=== PATIENT | male | born 1930 | race Caucasian/White ===

== ENCOUNTER 2021-02-04 18:50 | Inpatient (IN) | payer MEDICARE, OTHER ==
[2021-02-04 19:37] LABS: #Eosinphils 0.2 thou/uL (0.0-0.7); #Lymphocytes 1.6 thou/uL (1.20-3.40); #Monocytes 0.9 thou/uL (0.11-0.59); #Neutrophils 5.3 thou/uL (1.40-6.50); %Basophils 0.5 % (0.0-1.0); %Lymphocytes 20.1 % (21.0-51.0); %Monocytes 10.8 % (0.0-10.0); %Neutrophils 65.7 % (42.0-75.0); Hemoglobin 11.1 g/dL (14.0-18.0); Mean Corpuscular HGB CONC 31.4 g/dL (32.0-36.0); Mean Corpuscular Hemoglobin 29.8 pg (27.0-31.0); Mean Corpuscular Volume 94.9 fL (78.0-98.0); Mean Platelet Volume 6.7 fL (7.4-10.4); Platelet Count 259 thou/uL (130-400); RBC Distribution Width 12.8 % (11.5-14.5); White Blood Cell (WBC) Count 8.1 thou/uL (4.8-10.8)
[2021-02-04 19:57] LABS: ALT (SGPT) Less than 7 U/L (8-55); AST (SGOT) 15 U/L (5-34); Albumin 3.3 g/dL (3.4-4.8); Alkaline Phosphatase 71 U/L (40-110); Anion Gap 14 mmol/L (10-20); BUN (Urea Nitrogen) 24 mg/dL (8.4-25.7); Bilirubin, Total 0.3 mg/dL (0.2-1.2); Calc. Creatinine Clearance 0 mL/min (70-130); Calcium 8.5 mg/dL (7.8-10.44); Carbon Dioxide 21 mmol/L (23-31); Chloride 107 mmol/L (98-107); Glucose 134 mg/dL (83-110); Potassium 3.6 mmol/L (3.5-5.1); Protein, Total 6.3 g/dL (5.8-8.1); Sodium 138 mmol/L (136-145)
[2021-02-04 20:20] LABS: CKMB 4.8 ng/mL (0-6.6)
[2021-02-04] MEDS ORDERED: Enoxaparin Sodium 80 MG/0.8 ML SYRINGE ONE (21:00)
[2021-02-04 22:51] VITALS: BMI 25.9
[2021-02-04 23:33] LABS: Troponin I 6.018 ng/mL (< 0.028)
[2021-02-05] MEDS: Melatonin 3 MG TAB PO PRN (01:48)
[2021-02-05 02:10] LABS: Troponin I 15.305 ng/mL (< 0.028)
[2021-02-05] MEDS ORDERED: Acetaminophen 325 MG TAB PO PRN (02:46)
[2021-02-05] MEDS ORDERED: Ondansetron PF 4 MG/2 ML Vial IVP PRN (02:46)
[2021-02-05] MEDS ORDERED: Nitroglycerin 0.4 MG TAB (25 Tab Bottle) SL PRN (02:46)
[2021-02-05] MEDS ORDERED: Sodium Chloride 0.9% 1,000 ML IV SCH (03:00)
[2021-02-05 04:57] LABS: #Basophils 0.1 thou/uL (0.0-0.2); #Eosinphils 0.2 thou/uL (0.0-0.7); #Lymphocytes 1.7 thou/uL (1.20-3.40); #Monocytes 1.1 thou/uL (0.11-0.59); #Neutrophils 5.8 thou/uL (1.40-6.50); %Basophils 0.6 % (0.0-1.0); %Eosinophils 2.6 % (0.0-10.0); %Lymphocytes 19.5 % (21.0-51.0); %Monocytes 11.9 % (0.0-10.0); %Neutrophils 65.4 % (42.0-75.0); Hemoglobin 10.6 g/dL (14.0-18.0); Mean Corpuscular HGB CONC 32.7 g/dL (32.0-36.0); Mean Corpuscular Hemoglobin 31.1 pg (27.0-31.0); Mean Corpuscular Volume 95.2 fL (78.0-98.0); Platelet Count 226 thou/uL (130-400); RBC Distribution Width 12.7 % (11.5-14.5); Red Blood Cell (RBC) Count 3.42 mill/uL (4.70-6.10); White Blood Cell (WBC) Count 8.9 thou/uL (4.8-10.8)
[2021-02-05 05:07] LABS: INR-International Normal Ratio 1.3; PTT 53.1 sec (22.9-36.1)
[2021-02-05 05:21] LABS: Anion Gap 13 mmol/L (10-20); BUN (Urea Nitrogen) 21 mg/dL (8.4-25.7); Calc. Creatinine Clearance 41 mL/min (70-130); Calcium 8.4 mg/dL (7.8-10.44); Carbon Dioxide 19 mmol/L (23-31); Cardiac Risk 5.1 (Less than 4.5); Chloride 110 mmol/L (98-107); Cholesterol 132 mg/dl (< 200 Desired); Glucose 105 mg/dL (83-110); HDL Cholesterol 26 mg/dL (>60 Neg Risk); LDL Cholesterol, Calculated 76 mg/dL; Magnesium 1.3 mg/dL (1.6-2.6); Potassium 3.7 mmol/L (3.5-5.1); Sodium 138 mmol/L (136-145); Triglycerides 149 mg/dL (Less than 150)
[2021-02-05 06:57] LABS: CKMB 24.5 ng/mL (0-6.6)
[2021-02-05] MEDS ORDERED: Magnesium 2 GM/50 ML 2 GM in Premix Bag 1 BAG IVPB SCH (07:30)
[2021-02-05] MEDS: Aspirin Chewable 81 MG TAB PO SCH (08:54)
[2021-02-05] MEDS: Magnesium Oxide 400 MG TAB PO SCH ×2 (08:54→22:20)
[2021-02-05] MEDS: Sotalol HCl 80 MG TAB PO SCH ×2 (08:55→22:20)
[2021-02-05] MEDS ORDERED: HYDROcodone/Acetaminophen 5/325 mg Tablet PO PRN (12:39)
[2021-02-05 13:15] LABS: CRP (Inflammatory) 4.01 mg/dL (= or < 0.5); Uric Acid 8.8 mg/dL (3.5-7.2)
[2021-02-05] MEDS: predniSONE 20 MG TAB PO SCH (13:53)
[2021-02-05 16:43] LABS: SARS-CoV-2 PCR by NAA Not Detected (NotDetected)
[2021-02-05] MEDS ORDERED: Enoxaparin Sodium 60 MG/0.6 ML SYRINGE SC SCH (21:00)
[2021-02-05] MEDS ORDERED: Atorvastatin Calcium 20 MG TAB PO SCH (21:00)
[2021-02-05] MEDS: Enoxaparin Sodium 80 MG/0.8 ML SYRINGE SC SCH (22:19)
[2021-02-05] MEDS: Atorvastatin Calcium 40 MG TAB PO SCH (22:20)
[2021-02-05] MEDS: Nitroglycerin 2% Ointment 1 INCH/1 GM Packet TOP SCH (22:21)
[2021-02-06 05:12] LABS: #Lymphocytes 1.1 thou/uL (1.20-3.40); #Monocytes 0.8 thou/uL (0.11-0.59); #Neutrophils 6.6 thou/uL (1.40-6.50); %Eosinophils 0.3 % (0.0-10.0); %Lymphocytes 12.6 % (21.0-51.0); %Monocytes 8.8 % (0.0-10.0); %Neutrophils 78.3 % (42.0-75.0); Hemoglobin 10.1 g/dL (14.0-18.0); Mean Corpuscular HGB CONC 33.6 g/dL (32.0-36.0); Mean Corpuscular Hemoglobin 32.1 pg (27.0-31.0); Mean Corpuscular Volume 95.5 fL (78.0-98.0); Mean Platelet Volume 7.2 fL (7.4-10.4); Platelet Count 224 thou/uL (130-400); RBC Distribution Width 12.5 % (11.5-14.5); Red Blood Cell (RBC) Count 3.16 mill/uL (4.70-6.10); White Blood Cell (WBC) Count 8.5 thou/uL (4.8-10.8)
[2021-02-06 05:35] LABS: Anion Gap 13 mmol/L (10-20); BUN (Urea Nitrogen) 20 mg/dL (8.4-25.7); Calc. Creatinine Clearance 45 mL/min (70-130); Calcium 8.4 mg/dL (7.8-10.44); Carbon Dioxide 18 mmol/L (23-31); Chloride 110 mmol/L (98-107); Glucose 129 mg/dL (83-110); Magnesium 1.9 mg/dL (1.6-2.6); Sodium 137 mmol/L (136-145)
[2021-02-06] MEDS: Enoxaparin Sodium 80 MG/0.8 ML SYRINGE SC SCH (08:58)
[2021-02-06] MEDS: Aspirin Chewable 81 MG TAB PO SCH (08:58)
[2021-02-06] MEDS: Magnesium Oxide 400 MG TAB PO SCH ×2 (08:59→19:53)
[2021-02-06] MEDS: Sotalol HCl 80 MG TAB PO SCH ×2 (08:59→19:53)
[2021-02-06] MEDS: Nitroglycerin 2% Ointment 1 INCH/1 GM Packet TOP SCH ×2 (09:01→19:53)
[2021-02-06] MEDS: predniSONE 20 MG TAB PO SCH (11:45)
[2021-02-06] MEDS: Atorvastatin Calcium 40 MG TAB PO SCH (19:52)
[2021-02-06] MEDS: Melatonin 3 MG TAB PO PRN (19:52)
[2021-02-07] MEDS: Sotalol HCl 80 MG TAB PO SCH ×2 (04:57→20:39)
[2021-02-07] MEDS: Aspirin Chewable 81 MG TAB PO SCH (04:57)
[2021-02-07] MEDS: Nitroglycerin 2% Ointment 1 INCH/1 GM Packet TOP SCH ×2 (04:57→20:39)
[2021-02-07] MEDS: Magnesium Oxide 400 MG TAB PO SCH ×2 (04:57→20:38)
[2021-02-07 05:26] LABS: Anion Gap 13 mmol/L (10-20); BUN (Urea Nitrogen) 23 mg/dL (8.4-25.7); Calc. Creatinine Clearance 45 mL/min (70-130); Calcium 8.8 mg/dL (7.8-10.44); Carbon Dioxide 21 mmol/L (23-31); Chloride 109 mmol/L (98-107); Glucose 120 mg/dL (83-110); Magnesium 1.9 mg/dL (1.6-2.6); Potassium 4.1 mmol/L (3.5-5.1); Sodium 139 mmol/L (136-145)
[2021-02-07] MEDS ORDERED: Sodium Chloride 0.9% 1,000 ML IV SCH ×2 (06:00→08:45)
[2021-02-07] MEDS ORDERED: Heparin 10,000 UNITS/ 10 ML VIAL ONE (06:36)
[2021-02-07] MEDS ORDERED: Lidocaine 1% (PF) 30 ML VIAL ONE (06:36)
[2021-02-07] MEDS ORDERED: Fentanyl 100 MCG/2 ML VIAL ONE (08:05)
[2021-02-07] MEDS ORDERED: Midazolam HCl 2 mg/2 ml Vial ONE (08:05)
[2021-02-07] MEDS ORDERED: Protamine Sulfate 50 MG/5 ML VIAL ONE (08:28)
[2021-02-07] MEDS ORDERED: Sodium Chloride 0.9% 200 ML IV PRN (08:44)
[2021-02-07] MEDS ORDERED: Nitroglycerin 0.4 MG TAB (25 Tab Bottle) SL PRN (08:44)
[2021-02-07] MEDS ORDERED: Acetaminophen/Codeine 30-300mg Tablet PO PRN ×2 (08:44)
[2021-02-07] MEDS ORDERED: Lisinopril 10 MG TAB PO SCH (09:30)
[2021-02-07] MEDS ORDERED: Zolpidem Tartrate 5 MG TAB PO PRN (10:10)
[2021-02-07] MEDS ORDERED: HYDROcodone/Acetaminophen 10/325 mg Tablet PO PRN (10:10)
[2021-02-07] MEDS ORDERED: Communication Order-Pharmacy FS SCH (12:32)
[2021-02-07] MEDS: Atorvastatin Calcium 40 MG TAB PO SCH (20:38)
[2021-02-08] MEDS ORDERED: Metoprolol Tartrate 5 MG/5 ML VIAL IVP SCH (01:45)
[2021-02-08] MEDS: Sotalol HCl 80 MG TAB PO SCH (05:29)
[2021-02-08] MEDS ORDERED: Midazolam HCl 5 mg/5 ml Vial ONE (06:52)
[2021-02-08] MEDS ORDERED: Dexmedetomidine 200 MCG/2 ML VIAL ONE (06:52)
[2021-02-08] MEDS ORDERED: Fentanyl 250 MCG/5 ML VIAL ONE (06:52)
[2021-02-08] MEDS ORDERED: Lisinopril 10 MG TAB PO SCH (09:00)
[2021-02-08] MEDS ORDERED: Albumin 5% 500 ML ONE (09:32)
[2021-02-08] MEDS ORDERED: Heparin 10,000 UNITS/1 ML VIAL 30,000 UNITS in Sodium Chloride 0.9% 1,000 ML FS SCH (09:45)
[2021-02-08] MEDS ORDERED: Levofloxacin 500 mg/D5W 100 ml Premix Bag ONE (10:07)
[2021-02-08] MEDS ORDERED: Clindamycin/D5W 600 mg/50 ml Premix Bag ONE (10:07)
[2021-02-08] MEDS ORDERED: Lidocaine 1% PF 5 ML VIAL ONE (10:35)
[2021-02-08] MEDS ORDERED: Heparin 5,000 UNITS/ML VIAL ONE (10:35)
[2021-02-08] MEDS ORDERED: Vecuronium 10 MG VIAL ONE (10:35)
[2021-02-08] MEDS ORDERED: Mannitol 12.5 GM/50 ML ONE (10:35)
[2021-02-08] MEDS ORDERED: Sodium Bicarb 50 MEQ/50 ML Abboject 8.4% SYRINGE ONE (10:35)
[2021-02-08] MEDS ORDERED: Dexamethasone 20 MG/5 ML VIAL ONE (10:35)
[2021-02-08] MEDS ORDERED: Calcium Chloride 1 GM/10 ML Abboject SYRINGE ONE (10:35)
[2021-02-08] MEDS ORDERED: Lidocaine 2% PF 100 mg/5 ml Syringe ONE (10:35)
[2021-02-08] MEDS ORDERED: Cardioplegic Soln 1,000 ML BAG ONE (10:35)
[2021-02-08] MEDS ORDERED: Potassium Chloride 60 MEQ/30 ML VIAL ONE (10:35)
[2021-02-08] MEDS ORDERED: Thrombin 5000 UNITS/5 ML VIAL ONE (10:35)
[2021-02-08] MEDS ORDERED: Ondansetron PF 4 MG/2 ML Vial ONE (10:35)
[2021-02-08] MEDS ORDERED: Glycopyrrolate 0.2 MG/ML 5 ML SYRINGE ONE (10:35)
[2021-02-08] MEDS ORDERED: Protamine Sulfate 250 MG/25 ML VIAL ONE (10:35)
[2021-02-08] MEDS ORDERED: Magnesium Sulfate 1 GM/2 ML VIAL ONE (10:35)
[2021-02-08] MEDS ORDERED: PROPOFOL 200 MG/20 ML VIAL ONE (10:35)
[2021-02-08] MEDS ORDERED: Nitroglycerin 50 MG/250 ML BOT ONE (10:35)
[2021-02-08] MEDS ORDERED: Heparin 30,000 units/30 ml VIAL ONE (10:35)
[2021-02-08] MEDS ORDERED: Papaverine 60 MG/2 ML VIAL ONE (10:35)
[2021-02-08] MEDS ORDERED: Aminocaproic Acid 5 GM/20 ML VIAL ONE (10:35)
[2021-02-08] MEDS ORDERED: Norepinephrine 4 MG/4 ML VIAL ONE (10:35)
[2021-02-08] MEDS: Nitroglycerin 2% Ointment 1 INCH/1 GM Packet TOP SCH (11:13)
[2021-02-08] MEDS: Aspirin Chewable 81 MG TAB PO SCH (11:13)
[2021-02-08] MEDS: Magnesium Oxide 400 MG TAB PO SCH (11:13)
[2021-02-08] MEDS ORDERED: hydrALAZINE 20 MG/ML VIAL SLOW IVP PRN (14:31)
[2021-02-08] MEDS ORDERED: Ondansetron PF 4 MG/2 ML Vial IVP PRN (14:31)
[2021-02-08] MEDS ORDERED: Hetastarch 6% 500 ML 500 ML IVPB PRN (14:31)
[2021-02-08] MEDS ORDERED: Guaifenesin DM 100-10/5 ML UDCUP PO PRN (14:31)
[2021-02-08] MEDS ORDERED: Nitroglycerin 50 MG/250 ML BOT 250 ML IVPB PRN (14:31)
[2021-02-08] MEDS ORDERED: DOPamine 400 MG/D5W 250 ML 250 ML IVPB PRN (14:31)
[2021-02-08] MEDS ORDERED: Morphine 2 MG/ML VIAL SLOW IVP PRN (14:31)
[2021-02-08] MEDS ORDERED: Potassium Chloride 20 MEQ/100 ML PREMIX BAG IVPB PRN (14:31)
[2021-02-08] MEDS ORDERED: Bisacodyl 5 MG TAB PO PRN (14:31)
[2021-02-08] MEDS ORDERED: Post-Op Insulin Drip Protocol IVPB ONE (14:31)
[2021-02-08] MEDS ORDERED: Fentanyl 100 MCG/2 ML VIAL SLOW IVP PRN (14:31)
[2021-02-08] MEDS ORDERED: Bisacodyl 10 MG SUPP PR PRN (14:31)
[2021-02-08] MEDS ORDERED: niCARdipine 25 MG in Sodium Chloride 0.9% 250 ML 250 ML IVPB PRN (14:31)
[2021-02-08] MEDS ORDERED: Mag-Al 1200 mg/1200 mg/30 ML UDCUP PO PRN (14:31)
[2021-02-08] MEDS ORDERED: Acetaminophen 325 MG TAB PO PRN (14:31)
[2021-02-08] MEDS ORDERED: Norepinephrine 8 MG/0.9% NS 250 ML IVPB PRN (14:31)
[2021-02-08] MEDS ORDERED: HUMULIN R 100 UNITS in Sodium Chloride 0.9% 100 ML IVPB SCH (15:00)
[2021-02-08] MEDS ORDERED: Insulin Regular 300 UNITS/3 ML VIAL SC PRN (15:00)
[2021-02-08] MEDS ORDERED: Dextrose 5% in Water 1,000 ML IV PRN (15:00)
[2021-02-08] MEDS ORDERED: Dextrose 50% Abboject 50 ML SYRINGE SLOW IVP PRN (15:00)
[2021-02-08 15:05] LABS: #Eosinphils 0.1 thou/uL (0.0-0.7); #Lymphocytes 0.9 thou/uL (1.20-3.40); #Monocytes 0.5 thou/uL (0.11-0.59); #Neutrophils 10.4 thou/uL (1.40-6.50); %Basophils 0.2 % (0.0-1.0); %Eosinophils 0.9 % (0.0-10.0); %Lymphocytes 7.2 % (21.0-51.0); %Monocytes 4.3 % (0.0-10.0); %Neutrophils 87.3 % (42.0-75.0); Mean Corpuscular HGB CONC 33.1 g/dL (32.0-36.0); Mean Corpuscular Hemoglobin 31.7 pg (27.0-31.0); Mean Corpuscular Volume 95.7 fL (78.0-98.0); Mean Platelet Volume 6.7 fL (7.4-10.4); Platelet Count 164 thou/uL (130-400); RBC Distribution Width 12.7 % (11.5-14.5); Red Blood Cell (RBC) Count 3.17 mill/uL (4.70-6.10); White Blood Cell (WBC) Count 11.9 thou/uL (4.8-10.8)
[2021-02-08 15:10] LABS: Actual Bicarbonate (HCO3a) 22.5 mEq/L (22-28); Analyzer IN Cardio OR; Base Excess (BEa) -2.4 mEq/L (-2.0 to +3.0); CO2 Tension 39.2 mmHg (35.0-45.0); Calcium, Ionized (arterial) 1.08 mmol/L (1.12-1.30); Carboxyhemoglobin (COHb) 0.2 gm% (0.0-3.0); Hemoglobin (Hb) 10.8 g/dL (14.0-18.0); O2 Tension (PaO2), arterial 90.5 mmHg (> 60.0); Potassium - ABG Lab 4.26 mmol/L (3.70-5.30); pH, Arterial 7.38 (7.35-7.45)
[2021-02-08 15:15] LABS: Puncture Site Arterial Line
[2021-02-08 15:17] LABS: INR-International Normal Ratio 1.6; PTT 37.7 sec (22.9-36.1)
[2021-02-08 15:25] LABS: Anion Gap 9 mmol/L (10-20); BUN (Urea Nitrogen) 18 mg/dL (8.4-25.7); Calc. Creatinine Clearance 55 mL/min (70-130); Calcium 7.5 mg/dL (7.8-10.44); Carbon Dioxide 24 mmol/L (23-31); Chloride 108 mmol/L (98-107); Glucose 133 mg/dL (83-110); Potassium 4.3 mmol/L (3.5-5.1); Sodium 137 mmol/L (136-145)
[2021-02-08] MEDS: CEFAZOLIN 2 GM in Premix Bag 1 BAG IVPB SCH (15:30)
[2021-02-08] MEDS: Lactated Ringer's 1,000 ML IV SCH (15:43)
[2021-02-08] MEDS: Fentanyl 100 MCG/2 ML VIAL SLOW IVP PRN (16:06)
[2021-02-08 16:20] LABS: Actual Bicarbonate (HCO3a) 21.1 mEq/L (22-28); Analyzer IN Cardio OR; Base Excess (BEa) -3.2 mEq/L (-2.0 to +3.0); CO2 Tension 35.4 mmHg (35.0-45.0); Calcium, Ionized (arterial) 1.07 mmol/L (1.12-1.30); Carboxyhemoglobin (COHb) 0.4 gm% (0.0-3.0); Hemoglobin (Hb) 11.7 g/dL (14.0-18.0); O2 Tension (PaO2), arterial 157.6 mmHg (> 60.0); Potassium - ABG Lab 4.53 mmol/L (3.70-5.30); pH, Arterial 7.39 (7.35-7.45)
[2021-02-08 16:35] LABS: Puncture Site Arterial Line
[2021-02-08] MEDS: HYDROcodone/Acetaminophen 5/325 mg Tablet PO PRN (18:38)
[2021-02-08] MEDS: Famotidine/PF 20 mg/2ml Vial SLOW IVP SCH (20:15)
[2021-02-08] MEDS: Atorvastatin Calcium 10 MG TAB PO SCH (20:15)
[2021-02-08 20:43] LABS: Hemoglobin 10.5 g/dL (14.0-18.0)
[2021-02-08 20:56] LABS: Potassium 4.3 mmol/L (3.5-5.1)
[2021-02-09] MEDS: Lactated Ringer's 1,000 ML IV SCH (00:12)
[2021-02-09] MEDS: CEFAZOLIN 2 GM in Premix Bag 1 BAG IVPB SCH ×2 (00:12→08:02)
[2021-02-09] MEDS: HYDROcodone/Acetaminophen 5/325 mg Tablet PO PRN ×3 (00:13→14:03)
[2021-02-09 04:52] LABS: #Lymphocytes 0.6 thou/uL (1.20-3.40); #Monocytes 0.8 thou/uL (0.11-0.59); %Eosinophils 0.2 % (0.0-10.0); %Lymphocytes 4.7 % (21.0-51.0); %Monocytes 6.7 % (0.0-10.0); %Neutrophils 88.5 % (42.0-75.0); Mean Corpuscular HGB CONC 33.4 g/dL (32.0-36.0); Mean Corpuscular Hemoglobin 31.8 pg (27.0-31.0); Mean Corpuscular Volume 95.4 fL (78.0-98.0); Mean Platelet Volume 7.1 fL (7.4-10.4); Platelet Count 209 thou/uL (130-400); RBC Distribution Width 12.7 % (11.5-14.5); Red Blood Cell (RBC) Count 3.15 mill/uL (4.70-6.10); White Blood Cell (WBC) Count 12.5 thou/uL (4.8-10.8)
[2021-02-09 05:18] LABS: Anion Gap 10 mmol/L (10-20); BUN (Urea Nitrogen) 21 mg/dL (8.4-25.7); Calc. Creatinine Clearance 46 mL/min (70-130); Calcium 7.7 mg/dL (7.8-10.44); Carbon Dioxide 24 mmol/L (23-31); Chloride 107 mmol/L (98-107); Glucose 115 mg/dL (83-110); Potassium 4.4 mmol/L (3.5-5.1); Sodium 137 mmol/L (136-145)
[2021-02-09] MEDS ORDERED: Lactated Ringer's 1,000 ML IV SCH (06:14)
[2021-02-09] MEDS: Polyethylene Glycol 3350 17 GM Packet PO SCH (08:03)
[2021-02-09] MEDS: Enoxaparin Sodium 30 MG/0.3 ML SYRINGE SC SCH ×2 (08:03→21:02)
[2021-02-09] MEDS: Famotidine/PF 20 mg/2ml Vial SLOW IVP SCH ×2 (08:04→21:02)
[2021-02-09] MEDS: Aspirin Chewable 81 MG TAB PO SCH (08:20)
[2021-02-09] MEDS ORDERED: Aspirin 325 MG TAB PO SCH ×2 (09:00)
[2021-02-09] MEDS ORDERED: Sotalol HCl 80 MG TAB PO SCH ×2 (14:30→21:00)
[2021-02-09] MEDS ORDERED: Melatonin 3 MG TAB PO PRN (20:31)
[2021-02-09] MEDS: Atorvastatin Calcium 10 MG TAB PO SCH (21:01)
[2021-02-09] MEDS: Zolpidem Tartrate 5 MG TAB PO PRN (21:01)
[2021-02-10] MEDS: HYDROcodone/Acetaminophen 5/325 mg Tablet PO PRN ×2 (00:17→16:56)
[2021-02-10 04:45] LABS: #Lymphocytes 1.9 thou/uL (1.20-3.40); #Monocytes 1.3 thou/uL (0.11-0.59); %Basophils 0.1 % (0.0-1.0); %Eosinophils 0.3 % (0.0-10.0); %Lymphocytes 13.5 % (21.0-51.0); %Monocytes 9.3 % (0.0-10.0); %Neutrophils 76.9 % (42.0-75.0); Mean Corpuscular HGB CONC 32.7 g/dL (32.0-36.0); Mean Corpuscular Hemoglobin 31.1 pg (27.0-31.0); Mean Corpuscular Volume 95.2 fL (78.0-98.0); Mean Platelet Volume 7.7 fL (7.4-10.4); Platelet Count 235 thou/uL (130-400); RBC Distribution Width 12.6 % (11.5-14.5); Red Blood Cell (RBC) Count 3.21 mill/uL (4.70-6.10); White Blood Cell (WBC) Count 14.3 thou/uL (4.8-10.8)
[2021-02-10 05:02] LABS: Anion Gap 11 mmol/L (10-20); BUN (Urea Nitrogen) 23 mg/dL (8.4-25.7); Calc. Creatinine Clearance 47 mL/min (70-130); Calcium 8.1 mg/dL (7.8-10.44); Carbon Dioxide 25 mmol/L (23-31); Chloride 105 mmol/L (98-107); Glucose 111 mg/dL (83-110); Potassium 3.9 mmol/L (3.5-5.1); Sodium 137 mmol/L (136-145)
[2021-02-10] MEDS: Fentanyl 100 MCG/2 ML VIAL SLOW IVP PRN (05:03)
[2021-02-10] MEDS ORDERED: Mineral Oil ENEMA PR PRN (06:44)
[2021-02-10] MEDS ORDERED: Nitroglycerin 0.4 MG TAB (25 Tab Bottle) SL PRN (06:44)
[2021-02-10] MEDS ORDERED: Digoxin 0.5 MG/2 ML AMP SLOW IVP SCH ×2 (07:30→14:00)
[2021-02-10] MEDS: Aspirin Chewable 81 MG TAB PO SCH (08:04)
[2021-02-10] MEDS: Potassium Chloride 10 MEQ TAB PO SCH (08:04)
[2021-02-10] MEDS: Famotidine 20 MG TAB PO SCH (08:05)
[2021-02-10] MEDS: Furosemide 40 MG TAB PO SCH (08:05)
[2021-02-10] MEDS: Enoxaparin Sodium 30 MG/0.3 ML SYRINGE SC SCH ×2 (08:06→20:51)
[2021-02-10] MEDS: Polyethylene Glycol 3350 17 GM Packet PO SCH (08:06)
[2021-02-10] MEDS: Sotalol HCl 80 MG TAB PO SCH ×2 (08:06→20:50)
[2021-02-10] MEDS: Warfarin Sodium 2 MG TAB PO SCH (16:56)
[2021-02-10] MEDS: Atorvastatin Calcium 10 MG TAB PO SCH (20:49)
[2021-02-10] MEDS: Zolpidem Tartrate 5 MG TAB PO PRN (20:49)
[2021-02-11 04:27] LABS: INR-International Normal Ratio 1.2; Prothrombin Time 15.7 sec (12.0-14.7)
[2021-02-11] MEDS: HYDROcodone/Acetaminophen 5/325 mg Tablet PO PRN ×2 (05:09→14:24)
[2021-02-11] MEDS ORDERED: Amiodarone 150 MG in Dextrose 5% in Water 100 ML IVPB SCH (08:45)
[2021-02-11] MEDS: Furosemide 40 MG TAB PO SCH (08:49)
[2021-02-11] MEDS: Potassium Chloride 10 MEQ TAB PO SCH (08:49)
[2021-02-11] MEDS: Famotidine 20 MG TAB PO SCH (08:50)
[2021-02-11] MEDS: Polyethylene Glycol 3350 17 GM Packet PO SCH (08:50)
[2021-02-11] MEDS: Aspirin Chewable 81 MG TAB PO SCH (08:50)
[2021-02-11] MEDS: Enoxaparin Sodium 30 MG/0.3 ML SYRINGE SC SCH ×2 (08:50→20:57)
[2021-02-11] MEDS: Amiodarone 450 MG in Dextrose 5% in Water 250 ML IVPB SCH ×2 (09:28→17:20)
[2021-02-11] MEDS: Metoprolol Tartrate 25 MG TAB PO SCH ×2 (10:47→20:56)
[2021-02-11] MEDS: Warfarin Sodium 2 MG TAB PO SCH (17:20)
[2021-02-11] MEDS: Atorvastatin Calcium 10 MG TAB PO SCH (20:56)
[2021-02-12 04:50] LABS: INR-International Normal Ratio 1.3; Prothrombin Time 16.5 sec (12.0-14.7)
[2021-02-12] MEDS: HYDROcodone/Acetaminophen 5/325 mg Tablet PO PRN ×2 (08:07→23:37)
[2021-02-12] MEDS: Aspirin Chewable 81 MG TAB PO SCH (08:07)
[2021-02-12] MEDS: Metoprolol Tartrate 25 MG TAB PO SCH ×2 (08:08→20:29)
[2021-02-12] MEDS: Famotidine 20 MG TAB PO SCH (08:08)
[2021-02-12] MEDS: Furosemide 40 MG TAB PO SCH (08:08)
[2021-02-12] MEDS: Potassium Chloride 10 MEQ TAB PO SCH (08:08)
[2021-02-12] MEDS: Enoxaparin Sodium 30 MG/0.3 ML SYRINGE SC SCH ×2 (08:08→20:29)
[2021-02-12] MEDS: Polyethylene Glycol 3350 17 GM Packet PO SCH (08:09)
[2021-02-12] MEDS: Warfarin Sodium 2 MG TAB PO SCH (16:50)
[2021-02-12] MEDS: Atorvastatin Calcium 10 MG TAB PO SCH (20:30)
[2021-02-12] MEDS: Amiodarone 200 MG TAB PO SCH (20:30)
[2021-02-13 04:28] LABS: #Eosinphils 0.2 thou/uL (0.0-0.7); #Lymphocytes 2.5 thou/uL (1.20-3.40); #Monocytes 1.1 thou/uL (0.11-0.59); #Neutrophils 7.3 thou/uL (1.40-6.50); %Basophils 0.1 % (0.0-1.0); %Eosinophils 1.4 % (0.0-10.0); %Lymphocytes 22.6 % (21.0-51.0); %Monocytes 10.3 % (0.0-10.0); %Neutrophils 65.6 % (42.0-75.0); Hemoglobin 10.3 g/dL (14.0-18.0); Mean Corpuscular HGB CONC 30.8 g/dL (32.0-36.0); Mean Corpuscular Hemoglobin 29.3 pg (27.0-31.0); Mean Platelet Volume 7.3 fL (7.4-10.4); Platelet Count 287 thou/uL (130-400); RBC Distribution Width 12.5 % (11.5-14.5); Red Blood Cell (RBC) Count 3.51 mill/uL (4.70-6.10); White Blood Cell (WBC) Count 11.1 thou/uL (4.8-10.8)
[2021-02-13 04:41] LABS: INR-International Normal Ratio 1.5; Prothrombin Time 17.7 sec (12.0-14.7)
[2021-02-13 04:50] LABS: Anion Gap 12 mmol/L (10-20); BUN (Urea Nitrogen) 21 mg/dL (8.4-25.7); Calc. Creatinine Clearance 44 mL/min (70-130); Calcium 8.2 mg/dL (7.8-10.44); Carbon Dioxide 26 mmol/L (23-31); Chloride 102 mmol/L (98-107); Glucose 100 mg/dL (83-110); Potassium 3.8 mmol/L (3.5-5.1); Sodium 136 mmol/L (136-145)
[2021-02-13] MEDS ORDERED: Tamsulosin HCl 0.4 MG CAP PO SCH (09:45)
[2021-02-13] MEDS: Aspirin Chewable 81 MG TAB PO SCH (09:48)
[2021-02-13] MEDS: Potassium Chloride 10 MEQ TAB PO SCH (09:48)
[2021-02-13] MEDS: Furosemide 40 MG TAB PO SCH (09:49)
[2021-02-13] MEDS: Polyethylene Glycol 3350 17 GM Packet PO SCH (09:49)
[2021-02-13] MEDS: Amiodarone 200 MG TAB PO SCH ×2 (09:49→20:10)
[2021-02-13] MEDS: Metoprolol Tartrate 25 MG TAB PO SCH ×2 (09:50→20:09)
[2021-02-13] MEDS: Famotidine 20 MG TAB PO SCH (09:50)
[2021-02-13] MEDS: Enoxaparin Sodium 30 MG/0.3 ML SYRINGE SC SCH ×2 (09:50→20:10)
[2021-02-13] MEDS: Warfarin Sodium 2 MG TAB PO SCH (17:01)
[2021-02-13] MEDS: Atorvastatin Calcium 10 MG TAB PO SCH (20:09)
[2021-02-13] MEDS: HYDROcodone/Acetaminophen 5/325 mg Tablet PO PRN (23:08)
[2021-02-14] MEDS: Aspirin Chewable 81 MG TAB PO SCH (07:53)
[2021-02-14] MEDS: Amiodarone 200 MG TAB PO SCH (07:53)
[2021-02-14] MEDS: Metoprolol Tartrate 25 MG TAB PO SCH (07:54)
[2021-02-14] MEDS: Enoxaparin Sodium 30 MG/0.3 ML SYRINGE SC SCH (07:54)
[2021-02-14] MEDS: Polyethylene Glycol 3350 17 GM Packet PO SCH (07:54)
[2021-02-14] MEDS: Famotidine 20 MG TAB PO SCH (07:54)
[2021-02-14] MEDS ORDERED: Tamsulosin HCl 0.4 MG CAP PO SCH (09:00)
[2021-02-14 09:01] LABS: INR-International Normal Ratio 1.7; Prothrombin Time 20.3 sec (12.0-14.7)
[2021-02-14 10:27] LABS: Actual Bicarbonate (HCO3a) 22.3 mEq/L (22-28); Analyzer IN Cardio OR; Base Excess (BEa) -1.7 mEq/L (-2.0 to +3.0); CO2 Tension 35.3 mmHg (35.0-45.0); Calcium, Ionized (arterial) 1.12 mmol/L (1.12-1.30); Carboxyhemoglobin (COHb) 0.3 gm% (0.0-3.0); Hemoglobin (Hb) 11.5 g/dL (14.0-18.0); O2 Tension (PaO2), arterial 377.7 mmHg (> 60.0); Potassium - ABG Lab 3.77 mmol/L (3.70-5.30); pH, Arterial 7.42 (7.35-7.45)
[2021-02-14 10:28] LABS: Actual Bicarbonate (HCO3a) 22.3 mEq/L (22-28); Analyzer IN Cardio OR; Base Excess (BEa) -2.2 mEq/L (-2.0 to +3.0); CO2 Tension 37.1 mmHg (35.0-45.0); Calcium, Ionized (arterial) 1.04 mmol/L (1.12-1.30); Carboxyhemoglobin (COHb) 0.3 gm% (0.0-3.0); Hemoglobin (Hb) 10.2 g/dL (14.0-18.0); O2 Tension (PaO2), arterial 351.2 mmHg (> 60.0); Potassium - ABG Lab 3.75 mmol/L (3.70-5.30)
[2021-02-14 10:28] LABS: Analyzer IN Cardio OR; Base Excess (BEa) 1.4 mEq/L (-2.0 to +3.0); CO2 Tension 34.5 mmHg (35.0-45.0); Calcium, Ionized (arterial) 0.86 mmol/L (1.12-1.30); Hemoglobin (Hb) 6.5 g/dL (14.0-18.0); Potassium - ABG Lab 4.04 mmol/L (3.70-5.30); pH, Arterial 7.48 (7.35-7.45)
[2021-02-14 10:29] LABS: Actual Bicarbonate (HCO3v) 23 mEq/L (22-28); Analyzer IN Cardio OR; Base Excess -0.7 mEq/L (-2.0 to +3.0); Calcium, Ionized (venous) 0.94 mmol/L (1.16-1.32); Chloride (VBG) 107 mmol/L (98-106); Hemoglobin (Hb) 7.2 g/dL (12.6-17.4); Potassium (VBG) 4.26 mmol/L (3.70-5.30); Sodium 133.1 mmol/L (133-146); pH (venous) 7.44 (7.32-7.43)
[2021-02-14 10:29] LABS: Actual Bicarbonate (HCO3a) 23.3 mEq/L (22-28); Analyzer IN Cardio OR; Base Excess (BEa) -0.8 mEq/L (-2.0 to +3.0); CO2 Tension 35.5 mmHg (35.0-45.0); Calcium, Ionized (arterial) 1.09 mmol/L (1.12-1.30); Carboxyhemoglobin (COHb) 0.5 gm% (0.0-3.0); Hemoglobin (Hb) 7.4 g/dL (14.0-18.0); O2 Tension (PaO2), arterial 165.4 mmHg (> 60.0); Potassium - ABG Lab 4.35 mmol/L (3.70-5.30); pH, Arterial 7.44 (7.35-7.45)
[2021-02-14 10:29] LABS: Actual Bicarbonate (HCO3a) 26.9 mEq/L (22-28); Analyzer IN Cardio OR; Base Excess (BEa) 4.6 mEq/L (-2.0 to +3.0); CO2 Tension 30.1 mmHg (35.0-45.0); Calcium, Ionized (arterial) 0.93 mmol/L (1.12-1.30); Carboxyhemoglobin (COHb) 0.8 gm% (0.0-3.0); Hemoglobin (Hb) 6.9 g/dL (14.0-18.0); O2 Tension (PaO2), arterial 379.8 mmHg (> 60.0); Potassium - ABG Lab 4.25 mmol/L (3.70-5.30)
[2021-02-14 10:30] LABS: Analyzer IN Cardio OR; Base Excess (BEa) -2.6 mEq/L (-2.0 to +3.0); CO2 Tension 43.1 mmHg (35.0-45.0); Calcium, Ionized (arterial) 1.05 mmol/L (1.12-1.30); Carboxyhemoglobin (COHb) 0.1 gm% (0.0-3.0); Hemoglobin (Hb) 9.4 g/dL (14.0-18.0); Potassium - ABG Lab 3.96 mmol/L (3.70-5.30); pH, Arterial 7.35 (7.35-7.45)
[2021-02-14 10:36] LABS: Puncture Site Arterial Line
[2021-02-14 10:37] LABS: Puncture Site Arterial Line
[2021-02-14 10:42] LABS: Puncture Site Arterial Line
[2021-02-14 10:51] LABS: Puncture Site Arterial Line; pH, Arterial 7.57 (7.35-7.45)
[2021-02-14 10:51] LABS: Puncture Site Arterial Line
[2021-02-14 10:52] LABS: Puncture Site Arterial Line
[2021-02-14 14:52] VITALS: BP 110/69; TEMP 98.6
[2021-02-14] MEDS: Warfarin Sodium 2 MG TAB PO SCH (17:05)
== END 2021-02-14 18:30 | disposition home or self-care (01) | DRG 234 ==
LOC: ERS 18:50 → 2NO 20:56 → CCU 02-08 09:31 → 2NO 02-11 23:28
PROVIDERS: ADMIT Internal Medicine; ATTEND Internal Medicine
PROC: 4A023N7 Measurement of Cardiac Sampling and Pressure, Left Heart, Percutaneous Approach (ICD-10-PCS; principal; 2021-02-07)
PROC: B2111ZZ Fluoroscopy of Multiple Coronary Arteries using Low Osmolar Contrast (ICD-10-PCS; 2021-02-07)
PROC: B2151ZZ Fluoroscopy of Left Heart using Low Osmolar Contrast (ICD-10-PCS; 2021-02-07)
PROC: 4A033BC Measurement of Arterial Pressure, Coronary, Percutaneous Approach (ICD-10-PCS; 2021-02-07)
PROC: 02100Z9 Bypass Coronary Artery, One Artery from Left Internal Mammary, Open Approach (ICD-10-PCS; 2021-02-08)
PROC: 021109W Bypass Coronary Artery, Two Arteries from Aorta with Autologous Venous Tissue, Open Approach (ICD-10-PCS; 2021-02-08)
PROC: 06BQ0ZZ Excision of Left Saphenous Vein, Open Approach (ICD-10-PCS; 2021-02-08)
PROC: 5A1221Z Performance of Cardiac Output, Continuous (ICD-10-PCS; 2021-02-08)
DX: I21.4 Non-ST elevation (NSTEMI) myocardial infarction (principal); D68.51 Activated protein C resistance; N17.9 Acute kidney failure, unspecified; Z20.822 Contact with and (suspected) exposure to COVID-19; I44.0 Atrioventricular block, first degree; I49.1 Atrial premature depolarization; M10.9 Gout, unspecified; G89.29 Other chronic pain; I48.0 Paroxysmal atrial fibrillation; E78.5 Hyperlipidemia, unspecified; E78.00 Pure hypercholesterolemia, unspecified; I25.10 Atherosclerotic heart disease of native coronary artery without angina pectoris; R41.0 Disorientation, unspecified; I34.0 Nonrheumatic mitral (valve) insufficiency; I12.9 Hypertensive chronic kidney disease with stage 1 through stage 4 chronic kidney disease, or unspecified chronic kidney disease; N18.30 Chronic kidney disease, stage 3 unspecified; Z90.49 Acquired absence of other specified parts of digestive tract; Z79.01 Long term (current) use of anticoagulants; Z79.899 Other long term (current) drug therapy; Z86.718 Personal history of other venous thrombosis and embolism; Z86.711 Personal history of pulmonary embolism; Z82.49 Family history of ischemic heart disease and other diseases of the circulatory system; Z80.1 Family history of malignant neoplasm of trachea, bronchus and lung; Z88.0 Allergy status to penicillin; Z86.73 Personal history of transient ischemic attack (TIA), and cerebral infarction without residual deficits
CPT/HCPCS: 36415; 36416; 36430; 71045; 80048; 80053; 80061; 82553; 82805; 82947; 83036; 83735; 84484; 84550; 85025; 85347; 85610; 85730; 86140; 86850; 86900; 86901; 93005; 93010; 93306; 93458; 93798; 94002; 94150; 94760; 99152; J0282; J0360; J0690; J1100; J1160; J1642; J1644; J1650; J1815; J1956; J2001; J2150; J2250; J2405; J2440; J2704; J2720; J3010; J3370; J3475; J3480; J3490; J7070; J7512; P9045; S0017; S0028; U0003; U0005

== ENCOUNTER 2021-03-14 16:42 | Emergency (ER) | payer MEDICARE ==
[~2021-03-14 16:42] MED LIST: Iopamidol-370 76% 500 ML 1 ML ONE
[2021-03-14 17:29] LABS: #Eosinphils 0.1 thou/uL (0.0-0.7); #Lymphocytes 1.3 thou/uL (1.20-3.40); #Monocytes 1.3 thou/uL (0.11-0.59); #Neutrophils 10.7 thou/uL (1.40-6.50); %Basophils 0.1 % (0.0-1.0); %Eosinophils 0.7 % (0.0-10.0); %Lymphocytes 9.8 % (21.0-51.0); %Monocytes 9.5 % (0.0-10.0); %Neutrophils 79.9 % (42.0-75.0); Hemoglobin 10.1 g/dL (14.0-18.0); Mean Corpuscular HGB CONC 31.9 g/dL (32.0-36.0); Mean Corpuscular Hemoglobin 29.6 pg (27.0-31.0); Mean Corpuscular Volume 92.7 fL (78.0-98.0); Mean Platelet Volume 6.3 fL (7.4-10.4); Platelet Count 341 thou/uL (130-400); RBC Distribution Width 14.1 % (11.5-14.5); Red Blood Cell (RBC) Count 3.42 mill/uL (4.70-6.10); White Blood Cell (WBC) Count 13.4 thou/uL (4.8-10.8)
[2021-03-14 17:40] LABS: Prothrombin Time 40.8 sec (12.0-14.7)
[2021-03-14 17:41] LABS: PTT 87.8 sec (22.9-36.1)
[2021-03-14 17:46] LABS: INR-International Normal Ratio 4.2
[2021-03-14 17:50] LABS: ALT (SGPT) 14 U/L (8-55); AST (SGOT) 17 U/L (5-34); Albumin 3.1 g/dL (3.4-4.8); Alkaline Phosphatase 87 U/L (40-110); Anion Gap 13 mmol/L (10-20); BUN (Urea Nitrogen) 22 mg/dL (8.4-25.7); Bilirubin, Total 0.4 mg/dL (0.2-1.2); Calc. Creatinine Clearance 0 mL/min (70-130); Calcium 8.6 mg/dL (7.8-10.44); Carbon Dioxide 25 mmol/L (23-31); Chloride 103 mmol/L (98-107); Globulin 3.6 g/dL (2.4-3.5); Glucose 118 mg/dL (83-110); Potassium 4.8 mmol/L (3.5-5.1); Protein, Total 6.7 g/dL (5.8-8.1); Sodium 136 mmol/L (136-145)
[2021-03-14] MEDS ORDERED: Morphine 4 MG/ML VIAL ONE (18:52)
[2021-03-14] MEDS ORDERED: traMADol HCl 50 MG TAB ONE (20:58)
[2021-03-14] MEDS ORDERED: Ketorolac Tromethamine 30 MG/ML VIAL ONE (20:59)
== END 2021-03-14 21:29 | disposition home or self-care (01) ==
LOC: ERS 16:42
DX: M62.838 Other muscle spasm (principal); I10 Essential (primary) hypertension; E78.5 Hyperlipidemia, unspecified; I25.10 Atherosclerotic heart disease of native coronary artery without angina pectoris; Z86.711 Personal history of pulmonary embolism; Z86.73 Personal history of transient ischemic attack (TIA), and cerebral infarction without residual deficits; Z79.01 Long term (current) use of anticoagulants; Z79.899 Other long term (current) drug therapy
CPT/HCPCS: 36415; 70450; 70498; 72125; 80053; 85025; 85610; 85730; 96374; 96375; J1885; J2270; Q9967

== ENCOUNTER 2021-09-07 13:55 | Outpatient (CLI) | payer MEDICARE | END 2021-09-07 13:56 | disposition home or self-care (01) | LOC: BICCT 13:55 | PROVIDERS: ATTEND Anesthesiology Pain Medicine | DX: M48.061 Spinal stenosis, lumbar region without neurogenic claudication (principal); M47.816 Spondylosis without myelopathy or radiculopathy, lumbar region; M51.36 Other intervertebral disc degeneration, lumbar region; M41.9 Scoliosis, unspecified; M48.07 Spinal stenosis, lumbosacral region; N20.0 Calculus of kidney | CPT/HCPCS: 72110; 72131 ==

== ENCOUNTER 2021-09-11 15:44 | Inpatient (IN) | payer MEDICARE, OTHER ==
[2021-09-11 16:35] LABS: Hemoglobin 10.8 g/dL (14.0-18.0); Mean Corpuscular HGB CONC 32.2 g/dL (32.0-36.0); Mean Corpuscular Hemoglobin 30.3 pg (27.0-31.0); Mean Corpuscular Volume 94.2 fL (78.0-98.0); Platelet Count 171 thou/uL (130-400); RBC Distribution Width 15.6 % (11.5-14.5); Red Blood Cell (RBC) Count 3.55 mill/uL (4.70-6.10); White Blood Cell (WBC) Count 14.1 thou/uL (4.8-10.8)
[2021-09-11] MEDS ORDERED: Azithromycin 500 MG VIAL ONE (16:49)
[2021-09-11] MEDS ORDERED: cefTRIAXone\\ROCEPHIN 1 GM VIAL ONE (16:49)
[2021-09-11 16:53] LABS: Bacteria/HPF None Seen HPF (None Seen); Bilirubin Negative (Negative); Blood, Urine Negative (Negative); Clarity Clear (Clear); Glucose, Urine (Dipstick) Normal (Negative); Ketone, Urine Negative (Negative); Leukocyte Negative Leu/uL (Negative); Nitrite Negative (Negative); Protein, Urine (Dipstick) 30 mg/dL (Neg-Trace); RBC/HPF 0-3 HPF (0-3); Specific Gravity, Urine 1.022 (1.002-1.036); Squamous Epithelial None Seen HPF (0-3); Urobilinogen Normal mg/dL (Less than 2); WBC/HPF 0-3 HPF (0-3)
[2021-09-11 16:54] LABS: Anisocytosis SLIGHT = 6-15 cells (100X) (0-5/hpf); Band 22 % (5-11); Lymphocytes 3 % (21-51); MDiff Complete? YES; Monocytes 7 % (0-10); Neutrophil 68 % (42-75); Ovalocytes SLIGHT = 2-5 cells (100X) (0-1/hpf); Platelet Morphology Comment Appears Adequate; Polychromasia SLIGHT = 2-3 cells (100X) (0-2/hpf)
[2021-09-11 16:56] LABS: ALT (SGPT) 24 U/L (8-55); AST (SGOT) 27 U/L (5-34); Albumin 2.8 g/dL (3.4-4.8); Alkaline Phosphatase 67 U/L (40-110); Anion Gap 16 mmol/L (10-20); BUN (Urea Nitrogen) 42 mg/dL (8.4-25.7); Calc. Creatinine Clearance 0 mL/min (70-130); Calcium 7.9 mg/dL (7.8-10.44); Carbon Dioxide 18 mmol/L (23-31); Chloride 108 mmol/L (98-107); Globulin 2.8 g/dL (2.4-3.5); Glucose 85 mg/dL (83-110); Protein, Total 5.6 g/dL (5.8-8.1); Sodium 138 mmol/L (136-145)
[2021-09-11 17:16] LABS: CKMB 1.3 ng/mL (0-6.6)
[2021-09-11 17:50] LABS: SARS-CoV-2 NAA Rapid Test Not Detected (NotDetected)
[2021-09-11] MEDS ORDERED: Guaifenesin DM 100-10/5 ML UDCUP PO PRN (18:23)
[2021-09-11] MEDS ORDERED: Ondansetron PF 4 MG/2 ML Vial IVP PRN (18:23)
[2021-09-11] MEDS ORDERED: Acetaminophen 650 MG Suppository PR PRN (18:23)
[2021-09-11] MEDS ORDERED: Bisacodyl 5 MG TAB PO PRN (18:23)
[2021-09-11] MEDS ORDERED: Senokot S 8.6-50 MG TAB PO PRN (18:23)
[2021-09-11] MEDS ORDERED: Melatonin 3 MG TAB PO PRN (18:40)
[2021-09-11 19:49] LABS: INR-International Normal Ratio 1.8; Prothrombin Time 21.2 sec (12.0-14.7)
[2021-09-11 19:52] VITALS: BMI 27.8
[2021-09-11 19:54] LABS: Lactic Acid 2.3 mmol/L (0.5-2.2)
[2021-09-11 20:03] LABS: Troponin I 0.072 ng/mL (< 0.028)
[2021-09-11] MEDS: Atorvastatin Calcium 20 MG TAB PO SCH (20:10)
[2021-09-11] MEDS: Niacin 500 MG TAB PO SCH (20:10)
[2021-09-11] MEDS: Magnesium Oxide 400 MG TAB PO SCH (20:10)
[2021-09-11] MEDS: Acetaminophen 325 MG TAB PO PRN (20:11)
[2021-09-11 23:14] LABS: Troponin I 0.058 ng/mL (< 0.028)
[2021-09-11] MEDS ORDERED: Sodium Chloride 0.9% 500 ML IV SCH (23:30)
[2021-09-11] MEDS ORDERED: Sodium Chloride 0.9% 1,000 ML IV SCH ×2 (23:45→23:50)
[2021-09-12 01:54] LABS: Lactic Acid 1.1 mmol/L (0.5-2.2)
[2021-09-12 05:51] LABS: #Basophils 0.1 thou/uL (0.0-0.2); #Lymphocytes 1.5 thou/uL (1.20-3.40); #Monocytes 0.9 thou/uL (0.11-0.59); #Neutrophils 9.4 thou/uL (1.40-6.50); %Basophils 0.7 % (0.0-1.0); %Eosinophils 0.3 % (0.0-10.0); %Lymphocytes 12.8 % (21.0-51.0); %Monocytes 7.8 % (0.0-10.0); %Neutrophils 78.5 % (42.0-75.0); Hemoglobin 9.6 g/dL (14.0-18.0); Mean Corpuscular HGB CONC 31.2 g/dL (32.0-36.0); Mean Corpuscular Hemoglobin 29.9 pg (27.0-31.0); Mean Platelet Volume 6.7 fL (7.4-10.4); Platelet Count 155 thou/uL (130-400); RBC Distribution Width 15.8 % (11.5-14.5); Red Blood Cell (RBC) Count 3.21 mill/uL (4.70-6.10)
[2021-09-12 06:04] LABS: INR-International Normal Ratio 1.7; Prothrombin Time 19.9 sec (12.0-14.7)
[2021-09-12 06:48] LABS: ALT (SGPT) 27 U/L (8-55); AST (SGOT) 43 U/L (5-34); Albumin 2.6 g/dL (3.4-4.8); Alkaline Phosphatase 59 U/L (40-110); Anion Gap 13 mmol/L (10-20); BUN (Urea Nitrogen) 41 mg/dL (8.4-25.7); Bilirubin, Total 0.6 mg/dL (0.2-1.2); Calc. Creatinine Clearance 36 mL/min (70-130); Calcium 7.6 mg/dL (7.8-10.44); Carbon Dioxide 18 mmol/L (23-31); Chloride 113 mmol/L (98-107); Globulin 2.4 g/dL (2.4-3.5); Glucose 123 mg/dL (83-110); Potassium 4.2 mmol/L (3.5-5.1); Sodium 140 mmol/L (136-145)
[2021-09-12] MEDS: Niacin 500 MG TAB PO SCH ×2 (08:05→20:07)
[2021-09-12] MEDS: Aspirin Chewable 81 MG TAB PO SCH (08:05)
[2021-09-12] MEDS: Tamsulosin HCl 0.4 MG CAP PO SCH (08:05)
[2021-09-12] MEDS: Magnesium Oxide 400 MG TAB PO SCH ×2 (08:06→20:07)
[2021-09-12] MEDS: Cholecalciferol 1,000 UNITS (25 MCG) TAB PO SCH (08:06)
[2021-09-12] MEDS: Rivaroxaban 15 MG TAB PO SCH (08:06)
[2021-09-12] MEDS: Sodium Chloride 0.9% 1,000 ML IV SCH (16:28)
[2021-09-12] MEDS ORDERED: Azithromycin 500 MG in Sodium Chloride 0.9% 250 ML 250 ML IVPB SCH (17:00)
[2021-09-12] MEDS ORDERED: cefTRIAXone\\ROCEPHIN 2 GM in Sodium Chloride 0.9% 100 ML IVPB SCH (17:00)
[2021-09-12] MEDS ORDERED: Warfarin Sodium 2 MG TAB PO SCH (17:00)
[2021-09-12] MEDS: Atorvastatin Calcium 20 MG TAB PO SCH (20:07)
[2021-09-12] MEDS ORDERED: hydrOXYzine 25 MG TAB PO PRN (20:35)
[2021-09-13] MEDS: Acetaminophen 325 MG TAB PO PRN (03:31)
[2021-09-13] MEDS: Sodium Chloride 0.9% 1,000 ML IV SCH ×2 (03:38→16:26)
[2021-09-13 06:30] LABS: #Eosinphils 0.2 thou/uL (0.0-0.7); #Lymphocytes 1.4 thou/uL (1.20-3.40); #Monocytes 0.7 thou/uL (0.11-0.59); #Neutrophils 9.2 thou/uL (1.40-6.50); %Basophils 0.3 % (0.0-1.0); %Eosinophils 1.4 % (0.0-10.0); %Lymphocytes 12.5 % (21.0-51.0); %Neutrophils 79.8 % (42.0-75.0); Hemoglobin 10.7 g/dL (14.0-18.0); Mean Corpuscular HGB CONC 31.7 g/dL (32.0-36.0); Mean Corpuscular Hemoglobin 30.3 pg (27.0-31.0); Mean Corpuscular Volume 95.7 fL (78.0-98.0); Platelet Count 183 thou/uL (130-400); RBC Distribution Width 15.6 % (11.5-14.5); Red Blood Cell (RBC) Count 3.54 mill/uL (4.70-6.10); White Blood Cell (WBC) Count 11.5 thou/uL (4.8-10.8)
[2021-09-13 06:42] LABS: INR-International Normal Ratio 1.8; Prothrombin Time 21.2 sec (12.0-14.7)
[2021-09-13 06:50] LABS: Anion Gap 13 mmol/L (10-20); BUN (Urea Nitrogen) 31 mg/dL (8.4-25.7); Calc. Creatinine Clearance 40 mL/min (70-130); Calcium 8.1 mg/dL (7.8-10.44); Carbon Dioxide 19 mmol/L (23-31); Chloride 111 mmol/L (98-107); Glucose 111 mg/dL (83-110); Sodium 139 mmol/L (136-145)
[2021-09-13] MEDS: Cholecalciferol 1,000 UNITS (25 MCG) TAB PO SCH (08:07)
[2021-09-13] MEDS: Aspirin Chewable 81 MG TAB PO SCH (08:07)
[2021-09-13] MEDS: Tamsulosin HCl 0.4 MG CAP PO SCH (08:07)
[2021-09-13] MEDS: Niacin 500 MG TAB PO SCH (08:07)
[2021-09-13] MEDS: Magnesium Oxide 400 MG TAB PO SCH (08:08)
[2021-09-13] MEDS ORDERED: Metoprolol Tartrate 25 MG TAB PO SCH (09:00)
[2021-09-13] MEDS ORDERED: Amiodarone 200 MG TAB PO SCH (09:00)
[2021-09-13] MEDS: Rivaroxaban 15 MG TAB PO SCH (10:44)
[2021-09-13 17:21] VITALS: TEMP 98.8
[2021-09-13 17:24] VITALS: BP 144/66
== END 2021-09-13 17:38 | disposition home or self-care (01) | DRG 871 ==
LOC: ERS 15:44 → T4-A 17:43 → OBSVTOIN 17:43
PROVIDERS: ADMIT Internal Medicine; ATTEND Internal Medicine
DX: A41.9 Sepsis, unspecified organism (principal); J18.9 Pneumonia, unspecified organism; I50.31 Acute diastolic (congestive) heart failure; J96.01 Acute respiratory failure with hypoxia; D68.51 Activated protein C resistance; N17.9 Acute kidney failure, unspecified; I13.0 Hypertensive heart and chronic kidney disease with heart failure and stage 1 through stage 4 chronic kidney disease, or unspecified chronic kidney disease; R65.20 Severe sepsis without septic shock; Z20.822 Contact with and (suspected) exposure to COVID-19; I95.9 Hypotension, unspecified; I44.0 Atrioventricular block, first degree; R79.89 Other specified abnormal findings of blood chemistry; Z66 Do not resuscitate; N18.30 Chronic kidney disease, stage 3 unspecified; I48.0 Paroxysmal atrial fibrillation; I25.10 Atherosclerotic heart disease of native coronary artery without angina pectoris; E78.5 Hyperlipidemia, unspecified; Z86.718 Personal history of other venous thrombosis and embolism; Z86.73 Personal history of transient ischemic attack (TIA), and cerebral infarction without residual deficits; Z86.711 Personal history of pulmonary embolism; Z95.0 Presence of cardiac pacemaker; Z95.1 Presence of aortocoronary bypass graft; Z88.0 Allergy status to penicillin; Z79.82 Long term (current) use of aspirin; Z79.899 Other long term (current) drug therapy; Z87.442 Personal history of urinary calculi; Z90.49 Acquired absence of other specified parts of digestive tract; Z79.01 Long term (current) use of anticoagulants
CPT/HCPCS: 36415; 71045; 80048; 80053; 81003; 81015; 82553; 83605; 83880; 84484; 85025; 85610; 87040; 87086; 93005; 96365; J0456; J0696; J3490; J7030; J7050; U0002

== ENCOUNTER 2022-01-20 19:41 | Emergency (ER) | payer OTHER ==
[2022-01-20 20:53] LABS: #Monocytes 1.4 thou/uL (0.11-0.59); #Neutrophils 7.7 thou/uL (1.40-6.50); %Basophils 0.2 % (0.0-1.0); %Eosinophils 0.4 % (0.0-10.0); %Lymphocytes 9.4 % (21.0-51.0); %Monocytes 13.6 % (0.0-10.0); %Neutrophils 76.3 % (42.0-75.0); Hemoglobin 11.2 g/dL (14.0-18.0); Mean Corpuscular HGB CONC 31.9 g/dL (32.0-36.0); Mean Corpuscular Hemoglobin 30.7 pg (27.0-31.0); Mean Corpuscular Volume 96.3 fL (78.0-98.0); Mean Platelet Volume 6.7 fL (7.4-10.4); Platelet Count 220 thou/uL (130-400); RBC Distribution Width 14.9 % (11.5-14.5); Red Blood Cell (RBC) Count 3.66 mill/uL (4.70-6.10)
[2022-01-20 21:13] LABS: ALT (SGPT) 23 U/L (8-55); AST (SGOT) 28 U/L (5-34); Albumin 3.4 g/dL (3.4-4.8); Alkaline Phosphatase 68 U/L (40-110); Anion Gap 16 mmol/L (10-20); BUN (Urea Nitrogen) 28 mg/dL (8.4-25.7); Bilirubin, Total 0.7 mg/dL (0.2-1.2); Calc. Creatinine Clearance 0 mL/min (70-130); Calcium 8.6 mg/dL (7.8-10.44); Carbon Dioxide 22 mmol/L (23-31); Chloride 102 mmol/L (98-107); Estimated GFR 42; Globulin 2.8 g/dL (2.4-3.5); Glucose 94 mg/dL (83-110); Potassium 4.3 mmol/L (3.5-5.1); Protein, Total 6.2 g/dL (5.8-8.1); Sodium 136 mmol/L (136-145)
[2022-01-20] MEDS ORDERED: Ondansetron PF 4 MG/2 ML Vial ONE (21:43)
[2022-01-20] MEDS ORDERED: Ondansetron ODT 4 MG TAB ONE (21:49)
[2022-01-20 22:16] LABS: Bacteria/HPF None Seen HPF (None Seen); Bilirubin Negative (Negative); Blood, Urine Trace (Negative); Clarity Clear (Clear); Glucose, Urine (Dipstick) Normal (Negative); Ketone, Urine Negative (Negative); Leukocyte 75 Leu/uL (Negative); Nitrite Negative (Negative); Protein, Urine (Dipstick) 10 mg/dL (Neg-Trace); RBC/HPF 0-3 HPF (0-3); Specific Gravity, Urine 1.022 (1.002-1.036); Squamous Epithelial 0-3 HPF (0-3); Urobilinogen Normal mg/dL (Less than 2); pH, Urine 5.5 (5.0-9.0)
== END 2022-01-21 00:04 | disposition home or self-care (01) ==
LOC: ERS 19:41
DX: R11.2 Nausea with vomiting, unspecified (principal); I49.8 Other specified cardiac arrhythmias; I10 Essential (primary) hypertension; E78.5 Hyperlipidemia, unspecified; I25.10 Atherosclerotic heart disease of native coronary artery without angina pectoris; Z86.711 Personal history of pulmonary embolism; Z86.73 Personal history of transient ischemic attack (TIA), and cerebral infarction without residual deficits; Z95.0 Presence of cardiac pacemaker; Z79.899 Other long term (current) drug therapy
CPT/HCPCS: 36415; 71045; 74022; 80053; 81003; 81015; 83880; 84484; 85025; 93005; J2405; Q0162

== ENCOUNTER 2022-02-04 20:59 | Inpatient (IN) | payer OTHER ==
[2022-02-04 21:55] LABS: #Eosinphils 0.1 thou/uL (0.0-0.7); #Lymphocytes 1.4 thou/uL (1.20-3.40); #Monocytes 1.1 thou/uL (0.11-0.59); #Neutrophils 6.6 thou/uL (1.40-6.50); %Basophils 0.2 % (0.0-1.0); %Eosinophils 1.1 % (0.0-10.0); %Lymphocytes 14.9 % (21.0-51.0); %Neutrophils 71.8 % (42.0-75.0); Hemoglobin 11.3 g/dL (14.0-18.0); Mean Corpuscular HGB CONC 33.1 g/dL (32.0-36.0); Mean Corpuscular Hemoglobin 31.4 pg (27.0-31.0); Mean Corpuscular Volume 94.8 fL (78.0-98.0); Mean Platelet Volume 6.7 fL (7.4-10.4); Platelet Count 238 thou/uL (130-400); RBC Distribution Width 15.4 % (11.5-14.5); Red Blood Cell (RBC) Count 3.61 mill/uL (4.70-6.10); White Blood Cell (WBC) Count 9.2 thou/uL (4.8-10.8)
[2022-02-04 22:05] LABS: ALT (SGPT) 24 U/L (8-55); AST (SGOT) 27 U/L (5-34); Albumin 3.2 g/dL (3.4-4.8); Alkaline Phosphatase 61 U/L (40-110); Anion Gap 16 mmol/L (10-20); BUN (Urea Nitrogen) 33 mg/dL (8.4-25.7); Bilirubin, Total 0.7 mg/dL (0.2-1.2); CK (CPK) 67 U/L (30-200); Calc. Creatinine Clearance 0 mL/min (70-130); Calcium 8.9 mg/dL (7.8-10.44); Carbon Dioxide 23 mmol/L (23-31); Chloride 102 mmol/L (98-107); Estimated GFR 32; Globulin 2.9 g/dL (2.4-3.5); Glucose 105 mg/dL (83-110); Potassium 4.5 mmol/L (3.5-5.1); Protein, Total 6.1 g/dL (5.8-8.1); Sodium 136 mmol/L (136-145)
[2022-02-04 23:42] LABS: SARS-CoV-2 NAA Rapid Test Not Detected (NotDetected)
[2022-02-05 00:31] LABS: Bacteria/HPF None Seen HPF (None Seen); Bilirubin Negative (Negative); Blood, Urine Negative (Negative); Clarity Clear (Clear); Glucose, Urine (Dipstick) Normal (Negative); Ketone, Urine Negative (Negative); Leukocyte 250 Leu/uL (Negative); Nitrite Negative (Negative); Protein, Urine (Dipstick) Negative (Neg-Trace); RBC/HPF 0-3 HPF (0-3); Specific Gravity, Urine 1.014 (1.002-1.036); Squamous Epithelial None Seen HPF (0-3); Urobilinogen Normal mg/dL (Less than 2)
[2022-02-05] MEDS ORDERED: Ondansetron PF 4 MG/2 ML Vial IVP PRN (00:55)
[2022-02-05] MEDS ORDERED: Acetaminophen 650 MG Suppository PR PRN (00:55)
[2022-02-05] MEDS ORDERED: Ondansetron ODT 4 MG TAB PO PRN (00:55)
[2022-02-05 01:41] LABS: Troponin I 0.038 ng/mL (< 0.028)
[2022-02-05 02:22] VITALS: BMI 26.6
[2022-02-05] MEDS ORDERED: Furosemide 20 MG TAB PO PRN (04:12)
[2022-02-05] MEDS: Azithromycin 500 MG in Sodium Chloride 0.9% 250 ML 250 ML IVPB SCH (04:38)
[2022-02-05 05:18] LABS: #Eosinphils 0.1 thou/uL (0.0-0.7); #Lymphocytes 1.2 thou/uL (1.20-3.40); #Monocytes 0.9 thou/uL (0.11-0.59); #Neutrophils 4.8 thou/uL (1.40-6.50); %Basophils 0.3 % (0.0-1.0); %Eosinophils 1.5 % (0.0-10.0); %Lymphocytes 17.4 % (21.0-51.0); %Monocytes 12.8 % (0.0-10.0); Mean Corpuscular HGB CONC 32.8 g/dL (32.0-36.0); Mean Corpuscular Hemoglobin 30.8 pg (27.0-31.0); Mean Corpuscular Volume 93.9 fL (78.0-98.0); Mean Platelet Volume 6.9 fL (7.4-10.4); Platelet Count 210 thou/uL (130-400); RBC Distribution Width 15.2 % (11.5-14.5); Red Blood Cell (RBC) Count 3.24 mill/uL (4.70-6.10); White Blood Cell (WBC) Count 7.1 thou/uL (4.8-10.8)
[2022-02-05 05:29] LABS: Anion Gap 13 mmol/L (10-20); BUN (Urea Nitrogen) 29 mg/dL (8.4-25.7); Calc. Creatinine Clearance 32 mL/min (70-130); Calcium 8.3 mg/dL (7.8-10.44); Carbon Dioxide 22 mmol/L (23-31); Chloride 105 mmol/L (98-107); Estimated GFR 38; Glucose 88 mg/dL (83-110); Potassium 4.4 mmol/L (3.5-5.1); Sodium 136 mmol/L (136-145)
[2022-02-05 05:38] LABS: Troponin I 0.026 ng/mL (< 0.028)
[2022-02-05] MEDS: Sodium Chloride 0.9% 1,000 ML IV SCH ×3 (06:20→17:05)
[2022-02-05] MEDS: cefTRIAXone\\ROCEPHIN 1 GM in Sodium Chloride 0.9% 100 ML IVPB SCH (06:21)
[2022-02-05] MEDS: hydrOXYzine 25 MG TAB PO SCH ×2 (09:51→20:53)
[2022-02-05] MEDS: Aspirin Chewable 81 MG TAB PO SCH (09:51)
[2022-02-05] MEDS: Acetaminophen 325 MG TAB PO PRN (16:38)
[2022-02-05] MEDS: Rivaroxaban 15 MG TAB PO SCH (16:39)
[2022-02-05] MEDS: Metoprolol Tartrate 25 MG TAB PO SCH (20:53)
[2022-02-05] MEDS: Atorvastatin Calcium 20 MG TAB PO SCH (20:53)
[2022-02-06] MEDS: HYDROcodone/Acetaminophen 10/325 mg Tablet PO PRN (01:20)
[2022-02-06] MEDS: Azithromycin 500 MG in Sodium Chloride 0.9% 250 ML 250 ML IVPB SCH (04:22)
[2022-02-06] MEDS: cefTRIAXone\\ROCEPHIN 1 GM in Sodium Chloride 0.9% 100 ML IVPB SCH (09:47)
[2022-02-06] MEDS: Aspirin Chewable 81 MG TAB PO SCH (09:47)
[2022-02-06] MEDS: hydrOXYzine 25 MG TAB PO SCH ×2 (09:47→21:31)
[2022-02-06] MEDS: Tamsulosin HCl 0.4 MG CAP PO SCH (09:47)
[2022-02-06] MEDS: Amiodarone 200 MG TAB PO SCH (09:47)
[2022-02-06] MEDS: Metoprolol Tartrate 25 MG TAB PO SCH ×2 (09:48→21:30)
[2022-02-06] MEDS: Acetaminophen 325 MG TAB PO PRN (13:54)
[2022-02-06] MEDS: Rivaroxaban 15 MG TAB PO SCH (17:08)
[2022-02-06] MEDS: Atorvastatin Calcium 20 MG TAB PO SCH (21:31)
[2022-02-07] MEDS: Azithromycin 500 MG in Sodium Chloride 0.9% 250 ML 250 ML IVPB SCH (04:47)
[2022-02-07] MEDS: cefTRIAXone\\ROCEPHIN 1 GM in Sodium Chloride 0.9% 100 ML IVPB SCH (06:19)
[2022-02-07] MEDS: Amiodarone 200 MG TAB PO SCH (11:46)
[2022-02-07] MEDS: Metoprolol Tartrate 25 MG TAB PO SCH (11:47)
[2022-02-07] MEDS: Tamsulosin HCl 0.4 MG CAP PO SCH (11:47)
[2022-02-07] MEDS: hydrOXYzine 25 MG TAB PO SCH (11:48)
[2022-02-07] MEDS: Aspirin Chewable 81 MG TAB PO SCH (11:49)
[2022-02-07] MEDS: HYDROcodone/Acetaminophen 10/325 mg Tablet PO PRN (11:50)
[2022-02-07 16:08] VITALS: BP 95/51; TEMP 98.1
== END 2022-02-07 16:25 | disposition home health service (06) | DRG 194 ==
LOC: ERS 20:59 → 2NO 02-05 → ERHOLD 02-05 00:19 → 2NO 02-05 01:50
PROVIDERS: ADMIT Internal Medicine; ATTEND Internal Medicine
DX: J18.9 Pneumonia, unspecified organism (principal); D68.51 Activated protein C resistance; N17.9 Acute kidney failure, unspecified; Z20.822 Contact with and (suspected) exposure to COVID-19; E78.5 Hyperlipidemia, unspecified; N18.9 Chronic kidney disease, unspecified; I12.9 Hypertensive chronic kidney disease with stage 1 through stage 4 chronic kidney disease, or unspecified chronic kidney disease; E11.22 Type 2 diabetes mellitus with diabetic chronic kidney disease; I25.10 Atherosclerotic heart disease of native coronary artery without angina pectoris; Z79.899 Other long term (current) drug therapy; Z86.711 Personal history of pulmonary embolism; Z86.73 Personal history of transient ischemic attack (TIA), and cerebral infarction without residual deficits; Z95.1 Presence of aortocoronary bypass graft; Z88.0 Allergy status to penicillin; Z79.01 Long term (current) use of anticoagulants
CPT/HCPCS: 36415; 71045; 80048; 80053; 81003; 81015; 82550; 83735; 84484; 85025; 93005; J0456; J0696; J3490; J7050

== ENCOUNTER 2022-02-19 17:01 | Emergency (ER) | payer OTHER ==
[2022-02-19 17:36] LABS: Actual Bicarbonate (HCO3v) 23 mEq/L (22-28); Analyzer IN Cardio ER; Base Excess -1.1 mEq/L (-2.0 to +3.0); Calcium, Ionized (venous) 1.08 mmol/L (1.16-1.32); Chloride (VBG) 103 mmol/L (98-106); Hemoglobin (Hb) 10.4 g/dL (12.6-17.4); Potassium (VBG) 4.42 mmol/L (3.70-5.30); Sodium 132.3 mmol/L (133-146); pH (venous) 7.42 (7.32-7.43)
[2022-02-19 17:40] LABS: #Basophils 0.1 thou/uL (0.0-0.2); #Eosinphils 0.1 thou/uL (0.0-0.7); #Lymphocytes 1.1 thou/uL (1.20-3.40); #Monocytes 0.7 thou/uL (0.11-0.59); %Basophils 1.2 % (0.0-1.0); %Eosinophils 1.8 % (0.0-10.0); %Lymphocytes 22.2 % (21.0-51.0); %Monocytes 13.4 % (0.0-10.0); %Neutrophils 61.4 % (42.0-75.0); Mean Corpuscular HGB CONC 33.2 g/dL (32.0-36.0); Mean Corpuscular Volume 96.4 fL (78.0-98.0); Mean Platelet Volume 6.3 fL (7.4-10.4); Platelet Count 350 thou/uL (130-400); Red Blood Cell (RBC) Count 3.12 mill/uL (4.70-6.10); White Blood Cell (WBC) Count 4.9 thou/uL (4.8-10.8)
[2022-02-19 18:00] LABS: ALT (SGPT) 11 U/L (8-55); AST (SGOT) 19 U/L (5-34); Albumin 3.1 g/dL (3.4-4.8); Alkaline Phosphatase 68 U/L (40-110); Anion Gap 15 mmol/L (10-20); BUN (Urea Nitrogen) 21 mg/dL (8.4-25.7); Bilirubin, Total 0.6 mg/dL (0.2-1.2); Calc. Creatinine Clearance 0 mL/min (70-130); Calcium 8.7 mg/dL (7.8-10.44); Carbon Dioxide 24 mmol/L (23-31); Chloride 102 mmol/L (98-107); Estimated GFR 38; Globulin 2.9 g/dL (2.4-3.5); Glucose 87 mg/dL (83-110); Lipase 11 U/L (8-78); Magnesium 1.7 mg/dL (1.6-2.6); Potassium 4.6 mmol/L (3.5-5.1); Sodium 136 mmol/L (136-145)
[2022-02-19 18:46] LABS: SARS-CoV-2 NAA Rapid Test Not Detected (NotDetected)
[2022-02-19 19:30] LABS: Bacteria/HPF None Seen HPF (None Seen); Bilirubin Negative (Negative); Blood, Urine Negative (Negative); Clarity Clear (Clear); Glucose, Urine (Dipstick) Normal (Negative); Ketone, Urine Negative (Negative); Leukocyte 25 Leu/uL (Negative); Nitrite Negative (Negative); Protein, Urine (Dipstick) Negative (Neg-Trace); RBC/HPF 0-3 HPF (0-3); Specific Gravity, Urine 1.019 (1.002-1.036); Squamous Epithelial None Seen HPF (0-3); Urobilinogen Normal mg/dL (Less than 2); WBC/HPF 0-3 HPF (0-3)
== END 2022-02-19 22:00 | disposition home or self-care (01) ==
LOC: ERS 17:01
DX: R53.83 Other fatigue (principal); I10 Essential (primary) hypertension; E78.5 Hyperlipidemia, unspecified; Z86.711 Personal history of pulmonary embolism; Z86.73 Personal history of transient ischemic attack (TIA), and cerebral infarction without residual deficits; I25.10 Atherosclerotic heart disease of native coronary artery without angina pectoris; Z79.899 Other long term (current) drug therapy; Z79.01 Long term (current) use of anticoagulants; Z20.822 Contact with and (suspected) exposure to COVID-19; Z79.82 Long term (current) use of aspirin
CPT/HCPCS: 70450; 71045; 82805; 83605; 83690; 83735; 84439; 84484; 93005; 99285; U0002; 36415; 80053; 81003; 81015; 84443; 85025